=== PATIENT | male | born 1945 | race Caucasian/White ===

== ENCOUNTER 2019-02-28 08:54 | Emergency (ER) | payer OTHER ==
--- NOTE | 2019-02-28 09:47 | ER ---
Nurse's Notes [facility] Name: Liam Jenkins Age: 73 yrs Sex: Male : 1945 Arrival Date: 02/28/2019 Time: 08:56 Bed 20 Private MD: Toñito Sifuentes V Diagnosis: Pain in right hand-swelling, edema Presentation: 02/28 09:03 Presenting complaint: Patient states: RIGHT HAND SWELLING SINCE FRIDAY. Transition of bp care: patient was not received from another setting of care. Onset of symptoms is unknown. Risk Assessment: Do you want to hurt yourself or someone else? Patient reports no desire to harm self or others. Initial Sepsis Screen: Does the patient meet any 2 criteria? No. Patient's initial sepsis screen is negative. Does the patient have a suspected source of infection? No. Patient's initial sepsis screen is negative. Care prior to arrival: None. 09:03 Method Of Arrival: Ambulatory bp 09:03 Acuity: MALLORY 4 bp Triage Assessment: 09:05 General: Appears in no apparent distress. comfortable, obese, Behavior is calm, bp cooperative, appropriate for age. Pain: Complains of pain in right hand. EENT: No deficits noted. Neuro: No deficits noted. Cardiovascular: No deficits noted. Respiratory: No deficits noted. GI: No signs and/or symptoms were reported involving the gastrointestinal system. : No signs and/or symptoms were reported regarding the genitourinary system. Derm: No deficits noted. Musculoskeletal: Swelling present in right hand. Historical: - Allergies: 09:06 No Known Allergies; bp - Home Meds: 09:06 testosterone cypionate intramuscular intramuscular [Active]; LAVITRA [Active]; bp - PMHx: 09:06 None; bp - PSHx: 09:06 PROSTATE; bp - Immunization history:: Adult Immunizations up to date. - Social history:: Smoking status: Patient/guardian denies using tobacco. - Ebola Screening: : No symptoms or risks identified at this time. - Family history:: not pertinent. Screenin:37 Abuse screen: Denies threats or abuse. Denies injuries from another. Nutritional jl7 screening: No deficits noted. Tuberculosis screening: No symptoms or risk factors identified. Fall Risk None identified. Assessment: 09:05 General: SEE TRIAGE NOTE. bp 10:11 Reassessment: PT D/C HOME AMBULATORY WITH FAMILY, DX WITH R HAND PAIN/SWELLING. bp Vital Signs: 09:06 BP 147 / 104; Pulse 84; Resp 16; Temp 98; Pulse Ox 96% ; Weight 97.52 kg; Height 5 ft. bp 8 in. (172.72 cm); 10:12 BP 131 / 89; Pulse 82; Resp 16; Temp 98; Pulse Ox 96% ; bp 09:06 Body Mass Index 32.69 (97.52 kg, 172.72 cm) bp ED Course: 08:56 Patient arrived in ED. mr 08:56 Toñito Sifuentes MD is Private Physician. mr 08:56 Ken Myers MD is Attending Physician. joslyn 09:03 Rashawn Mejia, RN is Primary Nurse. bp 09:04 Triage completed. bp 09:06 Arm band placed on. bp 09:37 Patient has correct armband on for positive identification. Bed in low position. Call jl7 light in reach. Side rails up X 1. 09:41 Toñito Sifuentes MD is Referral Physician. joslyn 10:00 No provider procedures requiring assistance completed. Patient did not have IV access bp during this emergency room visit. Velcro wrist splint applied to right wrist. Administered Medications: 09:45 Drug: predniSONE 40 mg Route: PO; bp 10:14 Follow up: Response: No adverse reaction bp 09:45 Drug: Motrin 600 mg Route: PO; bp 10:14 Follow up: Response: No adverse reaction bp 09:45 Drug: Pepcid 20 mg Route: PO; bp 10:14 Follow up: Response: No adverse reaction bp 09:45 Drug: Benadryl 25 mg Route: PO; bp 10:14 Follow up: Response: No adverse reaction bp Outcome: 09:46 Discharge ordered by . joslyn 10:12 Discharged to home ambulatory, with family. bp 10:12 Condition: stable 10:12 Discharge instructions given to patient, Instructed on discharge instructions, follow up and referral plans. medication usage, Demonstrated understanding of instructions, follow-up care, medications, Prescriptions given X 4. 10:15 Patient left the ED. bp Signatures: Ken Myers MD MD cha Rivera, Mary LuoViktoriya, RN RN jl7 Rashawn Mejia, ELLYN RN bp
--- NOTE | 2019-02-28 09:48 | EDPHYS ---
Physician Documentation [facility] Name: Liam Jenkins Age: 73 yrs Sex: Male : 1945 Arrival Date: 02/28/2019 Time: 08:56 Bed 20 Private MD: Toñito Sifuentes V ED Physician Ken Myers HPI: 02/28 09:38 This 73 yrs old Male presents to ER via Ambulatory with complaints of Hand joslyn Swelling. 09:38 The patient or guardian reports decreased range of motion, pain, swelling, tenderness. joslyn The complaints affect the right hand diffusely. Context: The problem was sustained at an unknown location, resulted from an unknown cause. Onset: The symptoms/episode began/occurred 3 day(s) ago. Modifying factors: The symptoms are alleviated by nothing, the symptoms are aggravated by nothing. Associated signs and symptoms: The patient has no apparent associated signs or symptoms. Severity of symptoms: At their worst the symptoms were mild, in the emergency department the symptoms are unchanged. The patient has not experienced similar symptoms in the past. Historical: - Allergies: 09:06 No Known Allergies; bp - Home Meds: 09:06 testosterone cypionate intramuscular intramuscular [Active]; LAVITRA [Active]; bp - PMHx: 09:06 None; bp - PSHx: 09:06 PROSTATE; bp - Immunization history:: Adult Immunizations up to date. - Social history:: Smoking status: Patient/guardian denies using tobacco. - Ebola Screening: : No symptoms or risks identified at this time. - Family history:: not pertinent. ROS: 09:38 Constitutional: Negative for fever, chills, and weight loss, Eyes: Negative for injury, joslyn pain, redness, and discharge, ENT: Negative for injury, pain, and discharge, Neck: Negative for injury, pain, and swelling, Cardiovascular: Negative for chest pain, palpitations, and edema, Respiratory: Negative for shortness of breath, cough, wheezing, and pleuritic chest pain, Abdomen/GI: Negative for abdominal pain, nausea, vomiting, diarrhea, and constipation, Back: Negative for injury and pain, : Negative for injury, bleeding, discharge, and swelling, Skin: Negative for injury, rash, and discoloration, Neuro: Negative for headache, weakness, numbness, tingling, and seizure, Psych: Negative for depression, anxiety, suicide ideation, homicidal ideation, and hallucinations, Allergy/Immunology: Negative for hives, rash, and allergies, Endocrine: Negative for neck swelling, polydipsia, polyuria, polyphagia, and marked weight changes, Hematologic/Lymphatic: Negative for swollen nodes, abnormal bleeding, and unusual bruising. 09:38 MS/extremity: Positive for decreased range of motion, pain, swelling, tenderness, of the right hand. Exam: 09:38 Constitutional: This is a well developed, well nourished patient who is awake, alert, joslyn and in no acute distress. Head/Face: Normocephalic, atraumatic. Eyes: Pupils equal round and reactive to light, extra-ocular motions intact. Lids and lashes normal. Conjunctiva and sclera are non-icteric and not injected. Cornea within normal limits. Periorbital areas with no swelling, redness, or edema. ENT: Nares patent. No nasal discharge, no septal abnormalities noted. Tympanic membranes are normal and external auditory canals are clear. Oropharynx with no redness, swelling, or masses, exudates, or evidence of obstruction, uvula midline. Mucous membranes moist. Neck: Trachea midline, no thyromegaly or masses palpated, and no cervical lymphadenopathy. Supple, full range of motion without nuchal rigidity, or vertebral point tenderness. No Meningismus. Chest/axilla: Normal chest wall appearance and motion. Nontender with no deformity. No lesions are appreciated. Cardiovascular: Regular rate and rhythm with a normal S1 and S2. No gallops, murmurs, or rubs. Normal PMI, no JVD. No pulse deficits. Respiratory: Lungs have equal breath sounds bilaterally, clear to auscultation and percussion. No rales, rhonchi or wheezes noted. No increased work of breathing, no retractions or nasal flaring. Abdomen/GI: Soft, non-tender, with normal bowel sounds. No distension or tympany. No guarding or rebound. No evidence of tenderness throughout. Back: No spinal tenderness. No costovertebral tenderness. Full range of motion. Skin: Warm, dry with normal turgor. Normal color with no rashes, no lesions, and no evidence of cellulitis. Neuro: Awake and alert, GCS 15, oriented to person, place, time, and situation. Cranial nerves II-XII grossly intact. Motor strength 5/5 in all extremities. Sensory grossly intact. Cerebellar exam normal. Normal gait. Psych: Awake, alert, with orientation to person, place and time. Behavior, mood, and affect are within normal limits. 09:38 Musculoskeletal/extremity: Extremities: decreased ROM, pain, ROM: limited active range of motion due to pain, limited passive range of motion due to pain, in the right hand, DVT Exam: negative Homans' sign noted on exam, no appreciated bluish discoloration, pain, swelling, tenderness, erythema, increased warmth, that is moderate, of the right hand. Vital Signs: 09:06 BP 147 / 104; Pulse 84; Resp 16; Temp 98; Pulse Ox 96% ; Weight 97.52 kg; Height 5 ft. bp 8 in. (172.72 cm); 10:12 BP 131 / 89; Pulse 82; Resp 16; Temp 98; Pulse Ox 96% ; bp 09:06 Body Mass Index 32.69 (97.52 kg, 172.72 cm) bp MDM: 08:56 Patient medically screened. [facility] 09:47 Data reviewed: vital signs, nurses notes. [facility] 02/28 09:38 Order name: Ice pack; Complete Time: 10:13 [facility] 02/28 09:38 Order name: Splint - Wrist; Complete Time: 10:13 [facility] Administered Medications: 09:45 Drug: predniSONE 40 mg Route: PO; bp 10:14 Follow up: Response: No adverse reaction bp 09:45 Drug: Motrin 600 mg Route: PO; bp 10:14 Follow up: Response: No adverse reaction bp 09:45 Drug: Pepcid 20 mg Route: PO; bp 10:14 Follow up: Response: No adverse reaction bp 09:45 Drug: Benadryl 25 mg Route: PO; bp 10:14 Follow up: Response: No adverse reaction bp Disposition: 02/28/19 09:46 Discharged to Home. Impression: Pain in right hand - swelling, edema. - Condition is Stable. - Discharge Instructions: Edema, Angioedema, Edema, [id number], Hand Pain. - Prescriptions for Pepcid 20 mg Oral Tablet - take 1 tablet by ORAL route every 12 hours for 10 days; 20 tablet. Claritin 10 mg Oral Tablet - take 1 tablet by ORAL route once daily As needed; 14 tablet. Diclofenac Sodium 75 mg Oral Tablet, Delayed Release (E.C.) - take 1 tablet by ORAL route 2 times per day; 20 tablet. Medrol (Clarence) 4 mg Oral Tablets, Dose Pack - take 1 tablet by ORAL route as directed - follow package instructions; 1 packet. Augmentin 875- 125 mg Oral Tablet - take 1 tablet by ORAL route every 12 hours for 10 days; 20 tablet. - Medication Reconciliation Form, Thank You Letter, Antibiotic Education, Prescription Opioid Use form. - Follow up: Toñito Sifuentes MD; When: 2 - 3 days; Reason: Recheck today's complaints, Continuance of care, Re-evaluation by your physician. - Problem is new. - Symptoms have improved. Signatures: Ken Myers MD MD cha Peltier, Brian, RN RN bp Corrections: (The following items were deleted from the chart) 10:15 09:46 02/28/2019 09:46 Discharged to Home. Impression: Pain in right hand - swelling, bp edema. Condition is Stable. Forms are Medication Reconciliation Form, Thank You Letter, Antibiotic Education, Prescription Opioid Use. Follow up: Toñito Sifuentes; When: 2 - 3 days; Reason: Recheck today's complaints, Continuance of care, Re-evaluation by your physician. Problem is new. Symptoms have improved. joslyn
[2019-02-28] MEDS ORDERED: DIPHENHYDRAMINE 25 MG TAB/CAP ONE (10:00)
[2019-02-28] MEDS ORDERED: IBUPROFEN 200 MG TAB PO ONE (10:00)
[2019-02-28] MEDS ORDERED: predniSONE 20 MG TAB ONE (10:00)
[2019-02-28] MEDS ORDERED: FAMOTIDINE 20 MG TAB ONE (10:01)
[2019-02-28 10:20] VITALS: TEMP 98; O2SAT 96
[2019-02-28 10:21] VITALS: BP 131/89
== END 2019-02-28 10:15 | disposition home or self-care (01) ==
LOC: ER 08:54
DX: R60.9 Edema, unspecified (principal)
CPT/HCPCS: 99283; J7512

== ENCOUNTER 2022-03-27 11:55 | Inpatient (IN) | payer OTHER ==
--- OUTSIDE RECORDS SUMMARY | 2022-03-27 11:59 | XMS REPORT | Continuity of Care Document ---
:1945 Author Organization [facility] t Address [address] [place] [address] [address]. [address] [place] [address] Care Team Providers Name Role Phone Toñito Sifuentes MD Primary Care Physician PAWAN BRUNO Attending Clinician Unavailable Rashawn Mahan MD Attending Clinician Talon Nuno MD Attending Clinician MD TALON NUNO Attending Clinician Unavailable TALON NUNO Admitting Clinician Unavailable MD TALON NUNO Admitting Clinician Unavailable Payers Payer Name Policy Type Policy Number Effective Date Expiration Date S ource Problems Condition Condition Condition Status Onset Resolution Last Treating Co mments Source Name Details Category Date Date Treatment Clinician Date History of History of Disease Active M ethodi prostate prostate 3-14 st cancer cancer 00:00: Hospita 00 l Allergies, Adverse Reactions, Alerts This patient has no known allergies or adverse reactions. Family History Family Member Diagnosis Comments Start Date Stop Date Source [facility] Social History Social Habit Start Date Stop Date Quantity Comments Source Alcohol intake 2020-06-29 2020-06-29 Current drinker of [facility] 00:00:00 00:00:00 alcohol (finding) Hospita l Alcohol Comment 2020-05-19 2020-05-19 occasional [facility] 00[facility] Tobacco use and 2018-03-06 2018-03-06 Smokeless tobacco [facility] exposure 00:00:00 00:00:00 non-user Hospital Sex Assigned At [birth year] [facility] 00:[facility]00 [facility] Smoking Status Start Date Stop Date Source Never smoked tobacco [facility] Medications Ordered Filled Start Stop Current Ordering Indication Dosage Frequency Signature Comments Components Source Medication Medication Date Date Medication? Clinician (SIG) Name Name acetaminoph Yes 500mg Q6H Take 500 M ethodi en 5-[address] (TYLENOL) 10:12: mouth Hospita 500 MG 44 every 6 l tablet (six) hours as needed for mild pain. calcium Yes 1{tbl} Q.5D Take 1 Method i carbonate-v 5-[address] itamin D3 10:12: mouth 2 Hospi ta 500 mg-200 44 (two) l unit per times a tablet day with meals. celecoxib Yes 100mg QD Take 100 Met hodi (CeleBREX) 5-[address] 100 MG 10:12: mouth Hospita capsule 44 daily. l loratadine Yes 10mg QD Take 10 mg M ethodi (CLARITIN) 5-[address] 10 mg 10:12: daily. Hospita tablet 44 l pseudoepHED Yes 30mg Q4H Take 30 mg Methodi rine 5-[address] (SUDAFED) 10:12: every 4 Hospi ta 30 MG 44 (four) l tablet hours as needed for congestion . testosteron Yes QD Place on Me thodi e 5-[address] (ANDROGEL) 10:12: daily. Hospi ta 1 % (25 44 l mg/2.5gram) gel in packet NUTRITIONAL Yes Take by Met hodi SUPPLEMENTS 5-[address] ORAL 10:12: A, B, C, D Hospita 44 l acetaminoph Yes 500mg Q6H Take 500 M ethodi en 5-[address] (TYLENOL) 10:12: mouth Hospita 500 MG 44 every 6 l tablet (six) hours as needed for mild pain. calcium Yes 1{tbl} Q.5D Take 1 Method i carbonate-v 5-[address] itamin D3 10:12: mouth 2 Hospi ta 500 mg-200 44 (two) l unit per times a tablet day with meals. celecoxib 2020-0 Yes 100mg QD Take 100 Met hodi (CeleBREX) 5-[address] 100 MG 10:12: mouth Hospita capsule 44 daily. l loratadine 0 Yes 10mg QD Take 10 mg M ethodi (CLARITIN) 5-[address] 10 mg 10:12: daily. Hospita tablet 44 l pseudoepHED 0 Yes 30mg Q4H Take 30 mg Methodi rine 5-[address] (SUDAFED) 10:12: every 4 Hospi ta 30 MG 44 (four) l tablet hours as needed for congestion . testosteron Yes QD Place on Me thodi e 06-[address] (ANDROGEL) 10:12: daily. Hospi ta 1 % (25 44 l mg/2.5gram) gel in packet NUTRITIONAL Yes Take by Met hodi SUPPLEMENTS -[address] ORAL 10:12: A, B, C, D Hospita 44 l acetaminoph 0 Yes 500mg Q6H Take 500 M ethodi en 5-[address] (TYLENOL) 10:12: mouth Hospita 500 MG 44 every 6 l tablet (six) hours as needed for mild pain. calcium Yes 1{tbl} Q.5D Take 1 Method i carbonate-v 5-[address] itamin D3 10:12: mouth 2 Hospi ta 500 mg-200 44 (two) l unit per times a tablet day with meals. celecoxib 0 Yes 100mg QD Take 100 Met hodi (CeleBREX) 5-[address] 100 MG 10:12: mouth Hospita capsule 44 daily. l loratadine 0 Yes 10mg QD Take 10 mg M ethodi (CLARITIN) 5-[address] 10 mg 10:12: daily. Hospita tablet 44 l pseudoepHED 0 Yes 30mg Q4H Take 30 mg Methodi rine 5-[address] (SUDAFED) 10:12: every 4 Hospi ta 30 MG 44 (four) l tablet hours as needed for congestion . testosteron [address] on Me thodi e 5-[address] (ANDROGEL) 10:12: daily. Hospi ta 1 % (25 44 l mg/2.5gram) gel in packet NUTRITIONAL Yes Take by Met hodi SUPPLEMENTS 5-[address] ORAL 10:12: A, B, C, D Hospita 44 l acetaminoph 0 Yes 500mg Q6H Take 500 M ethodi en 5-[address] (TYLENOL) 10:12: mouth Hospita 500 MG 44 every 6 l tablet (six) hours as needed for mild pain. calcium Yes 1{tbl} Q.5D Take 1 Method i carbonate-v 5-[address] itamin D3 10:12: mouth 2 Hospi ta 500 mg-200 44 (two) l unit per times a tablet day with meals. celecoxib Yes 100mg QD Take 100 Met hodi (CeleBREX) 5-[address] 100 MG 10:12: mouth Hospita capsule 44 daily. l loratadine Yes 10mg QD Take 10 mg M ethodi (CLARITIN) 5-[address] 10 mg 10:12: daily. Hospita tablet 44 l pseudoepHED Yes 30mg Q4H Take 30 mg Methodi rine 5-[address] (SUDAFED) 10:12: every 4 Hospi ta 30 MG 44 (four) l tablet hours as needed for congestion . testosteron Yes QD Place on Me thodi e 5-[address] (ANDROGEL) 10:12: daily. Hospi ta 1 % (25 44 l mg/2.5gram) gel in packet NUTRITIONAL Yes Take by Met hodi SUPPLEMENTS 5-[address] ORAL 10:12: A, B, C, D Hospita 44 l acetaminoph 202-0 Yes 500mg Q6H Take 500 M ethodi en 5-[address] (TYLENOL) 10:12: mouth Hospita 500 MG 44 every 6 l tablet (six) hours as needed for mild pain. calcium 0 Yes 1{tbl} Q.5D Take 1 Method i carbonate-v 5-[address] itamin D3 10:12: mouth 2 Hospi ta 500 mg-200 44 (two) l unit per times a tablet day with meals. celecoxib Yes 100mg QD Take 100 Met hodi (CeleBREX) 5-[address] 100 MG 10:12: mouth Hospita capsule 44 daily. l loratadine Yes 10mg QD Take 10 mg M ethodi (CLARITIN) [address] 10 mg 10:12: daily. Hospita tablet 44 l pseudoepHED Yes 30mg Q4H Take 30 mg Methodi rine [address] (SUDAFED) 10:12: every 4 Hospi ta 30 MG 44 (four) l tablet hours as needed for congestion . testosteron Yes QD Place on Me thodi e 06-[address] (ANDROGEL) 10:12: daily. Hospi ta 1 % (25 44 l mg/2.5gram) gel in packet NUTRITIONAL Yes Take by Met hodi SUPPLEMENTS -[address] ORAL 10:12: A, B, C, D Hospita 44 l vardenafiL Yes [id number] 20mg Take 1 Methodi (LEVITRA) 1-11 tablet (20 st 20 MG 00:00: mg total) Hospita tablet 00 by mouth l See Admin Instructio ns. vardenafiL Yes [id number] 20mg Take 1 Methodi (LEVITRA) 1-11 tablet (20 st 20 MG 00:00: mg total) Hospita tablet 00 by mouth l See Admin Instructio ns. vardenafiL Yes [id number] 20mg Take 1 Methodi (LEVITRA) 1-11 tablet (20 st 20 MG 00:00: mg total) Hospita tablet 00 by mouth l See Admin Instructio ns. vardenafiL Yes [id number] 20mg Take 1 Methodi (LEVITRA) 1-11 tablet (20 st 20 MG 00:00: mg total) Hospita tablet 00 by mouth l See Admin Instructio ns. vardenafiL Yes [id number] 20mg Take 1 Methodi (LEVITRA) 1-11 tablet (20 st 20 MG 00:00: mg total) Hospita tablet 00 by mouth l See Admin Instructio ns. Immunizations Ordered Immunization Filled Immunization Date Status Commen ts Source Name Name HERMILO GRACEEamon 2020-04-04 Completed [facility] t [facility] 00:00:00 [facility] 2020-04-04 Completed Methodis t MRNA VACCINATION 00:00:00 [facility]AL[facility] 2020-04-04 Completed Methodis t MRNA VACCINATION 00:00:00 [facility] 2020-04-04 Completed Methodis t MRNA VACCINATION 00:00:00 [facility] 2020-03-13 Completed Methodis t MRNA VACCINATION 00:00:00 [facility] 2020-03-13 Completed [facility] t [facility] Completed Methodis t [place] [place]ACCINATION 00:00:00 [place] [id number] 2020-03-13 Completed Methodis t MRNA VACCINATION 00:00:00 [place] [id number] 2020-03-13 Completed Methodis t MRNA VACCINATION 00:00:00 Hospital Procedures Procedure Date / Time Performing Clinician Source Performed TESTOSTERONE LEVEL, FREE 2021-04-04 16:56:00 Talon Nuno [facility] AND TOTAL, MALE CBC WITH PLATELET AND 2021-04-04 16:56:00 Talon Nuno [facility] DIFFERENTIAL ESTRADIOL LEVEL 2021-04-04 16:56:00 Talon [facility]unoist Ho spital PSA, ULTRASENSITIVE 2021-04-04 16:56:00 [facility] Plan of Care Planned Activity Planned Date Details Comments Source Future Scheduled 2022-03-10 Hepatitis C screening [facility] Test 14:15:40 (procedure) [code = 738315697] Future Scheduled 2022-03-10 COLONOSCOPY SCREENING [facility] Test 14:15:40 [code = COLONOSCOPY SCREENING] Future Scheduled 2022-03-10 SHINGLES VACCINES (1 Met [facility] Test 14:15:40 of 2) [code = SHINGLES VACCINES (1 of 2)] Future Scheduled 2022-03-10 65+ PNEUMOCOCCAL [facility] Test 14:15:40 VACCINE (1 - PCV) [code = 65+ PNEUMOCOCCAL VACCINE (1 - PCV)] Future Scheduled 2022-03-10 COVID-19 VACCINE (3 - [facility] Test 14:15:40 Booster) [code = COVID-19 VACCINE (3 - Booster)] Future Scheduled 2022-03-10 INFLUENZA VACCINE [facility] Test 14:15:40 [code = INFLUENZA VACCINE] Future Scheduled 2022-03-10 Hepatitis C screening Me [facility] Test 14:15:40 (procedure) [code = 933483626] Future Scheduled 2022-03-10 COLONOSCOPY SCREENING [facility] Test 14:15:40 [code = COLONOSCOPY SCREENING] Future Scheduled 2022-03-10 SHINGLES VACCINES (1 Met [facility] Test 14:15:40 of 2) [code = SHINGLES VACCINES (1 of 2)] Future Scheduled 2022-03-10 65+ PNEUMOCOCCAL Methodi [facility] Test 14:15:40 VACCINE (1 - PCV) [code = 65+ PNEUMOCOCCAL VACCINE (1 - PCV)] Future Scheduled 2022-03-10 COVID-19 VACCINE (3 - [facility] Test 14:15:40 Booster) [code = COVID-19 VACCINE (3 - Booster)] Future Scheduled 2022-03-10 INFLUENZA VACCINE Method [facility] Test 14:15:40 [code = INFLUENZA VACCINE] Future Scheduled 2022-03-10 Hepatitis C screening [facility] Test 14:15:40 (procedure) [code = [id number]] Future Scheduled 2022-03-10 COLONOSCOPY SCREENING [facility] Test 14:15:40 [code = COLONOSCOPY SCREENING] Future Scheduled 2022-03-10 SHINGLES VACCINES (1 Met [facility] Test 14:15:40 of 2) [code = SHINGLES VACCINES (1 of 2)] Future Scheduled 2022-03-10 65+ PNEUMOCOCCAL [facility] Hospital Test 14:15:40 VACCINE (1 - PCV) [code = 65+ PNEUMOCOCCAL VACCINE (1 - PCV)] Future Scheduled 2022-03-10 COVID-19 VACCINE (3 - [facility] Test 14:15:40 Booster) [code = COVID-19 VACCINE (3 - Booster)] Future Scheduled 2022-03-10 INFLUENZA VACCINE Method [facility] Test 14:15:40 [code = INFLUENZA VACCINE] Future Scheduled 2022-02-08 Hepatitis C screening Me [facility] Test 07:10:06 (procedure) [code = [id number]] Future Scheduled 2022-02-08 COLONOSCOPY SCREENING Me [facility] Test 07:10:06 [code = COLONOSCOPY SCREENING] Future Scheduled 2022-02-08 SHINGLES VACCINES (1 Met [facility] Test 07:10:06 of 2) [code = SHINGLES VACCINES (1 of 2)] Future Scheduled 2022-02-08 65+ PNEUMOCOCCAL Methodi [facility] Test 07:10:06 VACCINE (1 - PCV) [code = 65+ PNEUMOCOCCAL VACCINE (1 - PCV)] Future Scheduled 2022-02-08 COVID-19 VACCINE (3 - [facility] Test 07:10:06 Booster) [code = COVID-19 VACCINE (3 - Booster)] Future Scheduled 2022-02-08 INFLUENZA VACCINE [facility] Test 07:10:06 [code = INFLUENZA VACCINE] Future Scheduled 2022-02-08 Hepatitis C screening [facility] Test 07:10:06 (procedure) [code = 312846975] Future Scheduled 2022-02-08 COLONOSCOPY SCREENING [facility] Test 07:10:06 [code = COLONOSCOPY SCREENING] Future Scheduled 2022-02-08 SHINGLES VACCINES (1 Met [facility] Test 07:10:06 of 2) [code = SHINGLES VACCINES (1 of 2)] Future Scheduled 2022-02-08 65+ PNEUMOCOCCAL Methodi [facility] Test 07:10:06 VACCINE (1 - PCV) [code = 65+ PNEUMOCOCCAL VACCINE (1 - PCV)] Future Scheduled 2022-02-08 COVID-19 VACCINE (3 - [facility] Test 07:10:06 Booster) [code = COVID-19 VACCINE (3 - Booster)] Future Scheduled 2022-02-08 INFLUENZA VACCINE [facility] Test 07:10:06 [code = INFLUENZA VACCINE] Encounters Start End Encounter Admission Attending Care Care Encounter Source Date/Time Date/Time Type Type Clinicians Facility Department ID 2021-06-11 2021-06-11 Emergency E PAWAN BRUNO [facility]SE [id number] 12:18:00 14:47:00 [facility] 2021-04-04 2021-04-04 Office Rashawn Mahan 1.2.840.1 [id number] Methodi 10:30:00 11:38:38 Visit Talon Nuno [address]8440.1.[address] 3.430.2.7 Hospit a .3.823448 l .8 2021-04-04 2021-04-04 Office Negrito Rashawn Maru. 1.2.840.1 [id number] Methodi 10:30:00 11:38:38 Visit Talon Nuno 85015.1.[address] 3.430.2.7 Hospit a .3.446252 l .8 2021-04-04 2021-04-04 Travel 1.2.840.1 1.2.996.329 [id number] Methodi 00:00:00 00:00:[address] 3.430.2.7 0.2.7.3.698 Ho spita .3.971661 084.8 l .8 2021-04-04 2021-04-04 Travel 1.2.840.1 1.2.867.805 [id number] Methodi 00:00:00 00:00:[address] 3.430.2.7 0.2.7.3.698 Ho spita .3.383759 084.8 l .8 2020-09-25 2020-09-25 Outpatient ALO, [facility] [id number] [place] 00:00:00 00:00:00 TALON [address] 2020-06-29 2020-06-29 Outpatient ALO [facility] [id number] [place] 00:00:00 00:00:00 TALON [address] 2020-06-21 2020-06-21 Outpatient ALO [facility] [id number] [place] 00:00:00 00:00:00 TALON [address] 2020-05-29 2020-05-29 Outpatient [facility] [id number] [place] 00:00:00 00:00:[address] 2020-05-25 2020-05-25 Outpatient ALO, [facility] [id number] [place] 00:00:00 00:00:00 TALON [address] 2020-05-22 2020-05-22 Outpatient ALO [facility] [id number] [place] 00:00:00 00:00:00 TALON [address] 2020-03-06 2020-03-06 Outpatient ALO [facility] [id number] [place] 00:00:00 00:00:00 TALON [address] Results Test Description Test Time Test Comments Results Result Comments Source Testosterone level, free and total, male 2021-04-07 02:07:00 Test Item Value Reference Range Interpretation Comme nts Testosterone (test code 729 ng/dL 264-916 Adul t male reference interval = 2986-8) is based on a p opulation ofhealthy nonob carl males (BMI <30) between 19 and 39 years old.facundo Tee.al. JCEM 2017,102;1161-1 173. PMID: 52919659. Testosterone, free 8.5 pg/mL 6.6-18.1 (test code = 2991-8) LINNEA (test code = LINNEA) Performed at: 01 - [address] [id number] Director: Wilian Park MD, Phone: [phone] at: 02 - [facility] [id number] Director: Jocelyn Marquez MD, Phone: [phone] [facility], free and total, [id number] 02:07:00 Test Item Value Reference Range Interpretation Comments Testosterone (test 729 ng/dL 264-916 Adult mal e code = 2986-8) reference interval is bas ed on a population ofhealthy nonobese males (BMI <30) betwe en 19 and 39 years old.darlin Tee.al. JCEM 2017,102;1161-1 17 3. PMID: 96435646. Testosterone, free 8.5 pg/mL 6.6-18.1 (test code = 2991-8) LINNEA (test code = Performed at: 01 LINNEA) - [facility] [id number] Director: Wilian Park MD, Phone: [phone] ed at: [address] [place] [address] [id number] Director: Jocelyn Marquez MD, Phone: [phone] [facility], free and total, [id number] 02:07:00 Test Item Value Reference Range Interpretation Comments Testosterone (test 729 ng/dL 264-916 Adult mal e code = 2986-8) reference interval is bas ed on a population ofhealthy nonobese males (BMI <30) betwe en 19 and 39 years old.Travison, et.al. JCEM 2017,102;1161-1 17 3. PMID: 17009302. Testosterone, free 8.5 pg/mL 6.6-18.1 (test code = 2991-8) LINNEA (test code = Performed at: 01 LINNEA) - [address] [id number] Director: Wilian Park MD, Phone: [phone] ed at: [address] [id number] Director: Jocelyn Marquez MD, Phone: [phone] [facility], free and total, [id number] 02:07:00 Test Item Value Reference Range Interpretation Comments Testosterone (test 729 ng/dL 264-916 Adult mal e code = 2986-8) reference interval is bas ed on a population ofhealthy nonobese males (BMI <30) betwe en 19 and 39 years old.Travison, et.al. JCEM 2017,102;1161-1 17 3. PMID: 72533001. Testosterone, free 8.5 pg/mL 6.6-18.1 (test code = 2991-8) LINNEA (test code = Performed at: 01 LINNEA) - [address] [id number] Director: Wilian Park MD, Phone: [phone] ed at: [address] [place] [address] [id number] Director: Jocelyn Marquez MD, Phone: [phone] [facility], free and total, [id number] 02:07:00 Test Item Value Reference Range Interpretation Comments Testosterone (test 729 ng/dL 264-916 Adult mal e code = 2986-8) reference interval is bas ed on a population ofhealthy nonobese males (BMI <30) betwe en 19 and 39 years old.Randal, et.al. JCEM 2017,102;1161-1 17 3. PMID: 15776929. Testosterone, free 8.5 pg/mL 6.6-18.1 (test code = 2991-8) LINNEA (test code = Performed at: 01 LINNEA) - [facility] [address] [id number] Director: Wilian Park MD, Phone: [phone] ed at: 02 - [facility] [address] [id number] Director: Jocelyn Marquez MD, Phone: [phone] [facility] with platelet and [id number] 13:07:00 Test Item Value Reference Range Interpretation Comments WBC (test code = 5.2 See_Comment [Automated 1190-2) message] The system which generated this result transmit jackie reference range : 3.4 - 10.8 x10E3/uL. The reference range was not used to interpret this result as normal/abnormal . RBC (test code = 4.80 See_Comment [Automated 190-8) message] The system which generated this result transmit jackie reference range : 4.14 - 5.80 x10E6/uL. The reference range was not used to interpret this result as normal/abnormal . HGB (test code = 15.8 g/dL 13.0-17.7 718-7) HCT (test code = 44.5 % 37.5-51.0 4544-3) MCV (test code = 93 fL 79-97 787-2) MCH (test code = 32.9 pg 26.6-33.0 785-6) MCHC (test code = 35.5 g/dL 31.5-35.7 786-4) RDW (test code = 12.7 % 11.6-15.4 788-0) Platelet count 177 See_Comment [Automated (test code = 777-3) message] The system which generated this result transmit jackie reference range : 150 - 450 x10E3/uL. The reference range was not used to interpret this result as normal/abnormal . Neutrophils (test 69 % Not Estab. code = 770-8) Lymphocytes (test 16 % Not Estab. code = 736-9) Monocytes (test 11 % Not Estab. code = 5905-5) Eosinophils (test 3 % Not Estab. code = 713-8) Basophils (test 1 % Not Estab. code = 706-2) Neutrophils, 3.6 See_Comment [Automated absolute (test code message] The = 751-8) system which generated this result transmit jackie reference range : 1.4 - 7.0 x10E3/uL. The reference range was not used to interpret this result as normal/abnormal . Lymphocytes, 0.8 See_Comment [Automated absolute (test code message] The = 731-0) system which generated this result transmit jackie reference range : 0.7 - 3.1 x10E3/uL. The reference range was not used to interpret this result as normal/abnormal . Monocytes, absolute 0.6 See_Comment [Automa jackie (test code = 742-7) message] The system which generated this result transmit jackie reference range : 0.1 - 0.9 x10E3/uL. The reference range was not used to interpret this result as normal/abnormal . Eosinophils, 0.1 See_Comment [Automated absolute (test code message] The = 711-2) system which generated this result transmit jackie reference range : 0.0 - 0.4 x10E3/uL. The reference range was not used to interpret this result as normal/abnormal . Basophils, absolute 0.0 See_Comment [Automa jackie (test code = 704-7) message] The system which generated this result transmit jackie reference range : 0.0 - 0.2 x10E3/uL. The reference range was not used to interpret this result as normal/abnormal . Immature 0 % Not Estab. granulocytes (test code = 20057-3) Immature 0.0 See_Comment [Automated granulocytes, message] The absolute (test code system w [facility] = 60445-3) generated this result transmit jackie reference range : 0.0 - 0.1 x10E3/uL. The reference range was not used to interpret this result as normal/abnormal . LINNEA (test code = Performed at: [facility]) - [address] [id number] Director: Wilian Park MD, Phone: [phone] [facility] [id number] 13:07:00 Test Item Value Reference Range Interpretation Comments Estradiol (test code 49.3 pg/mL 7.6-42.6 H Elsa E CLIA = 2243-4) methodology LINNEA (test code = LINNEA) Performed at: - [address] [id number] Director: Wilian Park MD, Phone: [phone] Lab Interpretation Abnormal (test code = 47295-3) [facility], [id number] 13:07:00 Test Item Value Reference Interpretation Comments Range PSA, 0.020 ng/mL 0.000-4.000 Elsa ECLIA ultrasensitive methodology.A ccording to (test code = the [place] Ur ological 18287-5) Association, Se rum PSA shoulddecrease and remain at undetectable levels after radicalprostate ctomy. The AUA defines bio chemical recurrence as a n initialPSA valu e 0.200 ng/mL or greate r followed by a subsequentconfi rmatory PSA value 0.200 ng/mL or greater.Values obtained with different assay methods or kits cannot be usedinterchange ably. Results cannot be interpreted as absolute evidenceof the presence or absence of m alignant disease. LINNEA (test code = Performed at: [facility]) [address] [place] [address] [id number] Director: Wilian Park MD, Phone: [phone] [facility] with platelet and [id number] 13:07:00 Test Item Value Reference Range Interpretation Comments WBC (test code = See_Comment [Automated 7628-2) message] The system which generated this result transmit jackie reference range : 3.4 - 10.8 x10E3/uL. The reference range was not used to interpret this result as normal/abnormal . RBC (test code = See_Comment [Automated 002-1) message] The system which generated this result transmit jackie reference range : 4.14 - 5.80 x10E6/uL. The reference range was not used to interpret this result as normal/abnormal . HGB (test code = 15.8 g/dL 13.0-17.7 718-7) HCT (test code = 44.5 % 37.5-51.0 4544-3) MCV (test code = 93 fL 79-97 787-2) MCH (test code = 32.9 pg 26.6-33.0 785-6) MCHC (test code = 35.5 g/dL 31.5-35.7 786-4) RDW (test code = 12.7 % 11.6-15.4 788-0) Platelet count See_Comment [Automated (test code = 777-3) message] The system which generated this result transmit jackie reference range : 150 - 450 x10E3/uL. The reference range was not used to interpret this result as normal/abnormal . Neutrophils (test 69 % Not Estab. code = 770-8) Lymphocytes (test 16 % Not Estab. code = 736-9) Monocytes (test 11 % Not Estab. code = 5905-5) Eosinophils (test 3 % Not Estab. code = 713-8) Basophils (test 1 % Not Estab. code = 706-2) Neutrophils, See_Comment [Automated absolute (test code message] The = 751-8) system which generated this result transmit jackie reference range : 1.4 - 7.0 x10E3/uL. The reference range was not used to interpret this result as normal/abnormal . Lymphocytes, See_Comment [Automated absolute (test code message] The = 731-0) system which generated this result transmit jackie reference range : 0.7 - 3.1 x10E3/uL. The reference range was not used to interpret this result as normal/abnormal . Monocytes, absolute See_Comment [Automa jackie (test code = 742-7) message] The system which generated this result transmit jackie reference range : 0.1 - 0.9 x10E3/uL. The reference range was not used to interpret this result as normal/abnormal . Eosinophils, See_Comment [Automated absolute (test code message] The = 711-2) system which generated this result transmit jackie reference range : 0.0 - 0.4 x10E3/uL. The reference range was not used to interpret this result as normal/abnormal . Basophils, absolute See_Comment [Automa jackie (test code = 704-7) message] The system which generated this result transmit jackie reference range : 0.0 - 0.2 x10E3/uL. The reference range was not used to interpret this result as normal/abnormal . Immature 0 % Not Estab. granulocytes (test code = 86592-1) Immature See_Comment [Automated granulocytes, message] The absolute (test code system w [facility] = 23908-6) generated this result transmit jackie reference range : 0.0 - 0.1 x10E3/uL. The reference range was not used to interpret this result as normal/abnormal . LINNEA (test code = Performed at: [facility]) - [address] [id number] Director: Wilian Park MD, Phone: [phone] [facility] [id number] 13:07:00 Test Item Value Reference Range Interpretation Comments Estradiol (test code 49.3 pg/mL 7.6-42.6 H Elsa E CLIA = 2243-4) methodology LINNEA (test code = LINNEA) Performed at: - [address] [id number] Director: Wilian Park MD, Phone: [phone] Lab Interpretation Abnormal (test code = 49634-5) [facility], [id number] 13:07:00 Test Item Value Reference Interpretation Comments Range PSA, 0.020 ng/mL 0.000-4.000 Elsa ECLIA ultrasensitive methodology.A ccording to (test code = the [place] Ur ological 04970-9) Association, Se rum PSA shoulddecrease and remain at undetectable levels after radicalprostate ctomy. The AUA defines bio chemical recurrence as a n initialPSA valu e 0.200 ng/mL or greate r followed by a subsequentconfi rmatory PSA value 0.200 ng/mL or greater.Values obtained with different assay methods or kits cannot be usedinterchange ably. Results cannot be interpreted as absolute evidenceof the presence or absence of m alignant disease. LINNEA (test code = Performed at: LINNEA) [address] [place] [id number] Director: Wilian Park MD, Phone: [phone] [facility] with platelet and [id number] 13:07:00 Test Item Value Reference Range Interpretation Comments WBC (test code = See_Comment [Automated 4990-2) message] The system which generated this result transmit jackie reference range : 3.4 - 10.8 x10E3/uL. The reference range was not used to interpret this result as normal/abnormal . RBC (test code = See_Comment [Automated 789-8) message] The system which generated this result transmit jackie reference range : 4.14 - 5.80 x10E6/uL. The reference range was not used to interpret this result as normal/abnormal . HGB (test code = 15.8 g/dL 13.0-17.7 718-7) HCT (test code = 44.5 % 37.5-51.0 4544-3) MCV (test code = 93 fL 79-97 787-2) MCH (test code = 32.9 pg 26.6-33.0 785-6) MCHC (test code = 35.5 g/dL 31.5-35.7 786-4) RDW (test code = 12.7 % 11.6-15.4 788-0) Platelet count See_Comment [Automated (test code = 777-3) message] The system which generated this result transmit jackie reference range : 150 - 450 x10E3/uL. The reference range was not used to interpret this result as normal/abnormal . Neutrophils (test 69 % Not Estab. code = 770-8) Lymphocytes (test 16 % Not Estab. code = 736-9) Monocytes (test 11 % Not Estab. code = 5905-5) Eosinophils (test 3 % Not Estab. code = 713-8) Basophils (test 1 % Not Estab. code = 706-2) Neutrophils, See_Comment [Automated absolute (test code message] The = 751-8) system which generated this result transmit jackie reference range : 1.4 - 7.0 x10E3/uL. The reference range was not used to interpret this result as normal/abnormal . Lymphocytes, See_Comment [Automated absolute (test code message] The = 731-0) system which generated this result transmit jackie reference range : 0.7 - 3.1 x10E3/uL. The reference range was not used to interpret this result as normal/abnormal . Monocytes, absolute See_Comment [Automa jackie (test code = 742-7) message] The system which generated this result transmit jackie reference range : 0.1 - 0.9 x10E3/uL. The reference range was not used to interpret this result as normal/abnormal . Eosinophils, See_Comment [Automated absolute (test code message] The = 711-2) system which generated this result transmit jackie reference range : 0.0 - 0.4 x10E3/uL. The reference range was not used to interpret this result as normal/abnormal . Basophils, absolute See_Comment [Automa jackie (test code = 704-7) message] The system which generated this result transmit jackie reference range : 0.0 - 0.2 x10E3/uL. The reference range was not used to interpret this result as normal/abnormal . Immature 0 % Not Estab. granulocytes (test code = 44654-0) Immature See_Comment [Automated granulocytes, message] The absolute (test code system w [facility] = 40430-7) generated this result transmit jackie reference range : 0.0 - 0.1 x10E3/uL. The reference range was not used to interpret this result as normal/abnormal . LINNEA (test code = Performed at: [facility]) - [address] [id number] Director: Wilian Park MD, Phone: [phone] [facility] [id number] 13:07:00 Test Item Value Reference Range Interpretation Comments Estradiol (test code 49.3 pg/mL 7.6-42.6 H Elsa E CLIA = 2243-4) methodology LINNEA (test code = LINNEA) Performed at: - [facility] [address] [id number] Director: Wilian Park MD, Phone: [phone] Lab Interpretation Abnormal (test code = 61951-4) [facility], [id number] 13:07:00 Test Item Value Reference Interpretation Comments Range PSA, 0.020 ng/mL 0.000-4.000 Elsa ECLIA ultrasensitive methodology.A ccording to (test code = the [place] Ur ological 47421-9) Association, Se rum PSA shoulddecrease and remain at undetectable levels after radicalprostate ctomy. The AUA defines bio chemical recurrence as a n initialPSA valu e 0.200 ng/mL or greate r followed by a subsequentconfi rmatory PSA value 0.200 ng/mL or greater.Values obtained with different assay methods or kits cannot be usedinterchange ably. Results cannot be interpreted as absolute evidenceof the presence or absence of m alignant disease. LINNEA (test code = Performed at: LINNEA) 01 - [facility] [address] [place], [place] [id number] Director: Wilian Park MD, Phone: [phone] [facility] with platelet and [id number] 13:07:00 Test Item Value Reference Range Interpretation Comments WBC (test code = See_Comment [Automated 9924-2) message] The system which generated this result transmit jackie reference range : 3.4 - 10.8 x10E3/uL. The reference range was not used to interpret this result as normal/abnormal . RBC (test code = See_Comment [Automated 687-8) message] The system which generated this result transmit jackie reference range : 4.14 - 5.80 x10E6/uL. The reference range was not used to interpret this result as normal/abnormal . HGB (test code = 15.8 g/dL 13.0-17.7 718-7) HCT (test code = 44.5 % 37.5-51.0 4544-3) MCV (test code = 93 fL 79-97 787-2) MCH (test code = 32.9 pg 26.6-33.0 785-6) MCHC (test code = 35.5 g/dL 31.5-35.7 786-4) RDW (test code = 12.7 % 11.6-15.4 788-0) Platelet count See_Comment [Automated (test code = 807-3) message] The system which generated this result transmit jackie reference range : 150 - 450 x10E3/uL. The reference range was not used to interpret this result as normal/abnormal . Neutrophils (test 69 % Not Estab. code = 770-8) Lymphocytes (test 16 % Not Estab. code = 736-9) Monocytes (test 11 % Not Estab. code = 5905-5) Eosinophils (test 3 % Not Estab. code = 713-8) Basophils (test 1 % Not Estab. code = 706-2) Neutrophils, See_Comment [Automated absolute (test code message] The = 751-8) system which generated this result transmit jackie reference range : 1.4 - 7.0 x10E3/uL. The reference range was not used to interpret this result as normal/abnormal . Lymphocytes, See_Comment [Automated absolute (test code message] The = 731-0) system which generated this result transmit jackie reference range : 0.7 - 3.1 x10E3/uL. The reference range was not used to interpret this result as normal/abnormal . Monocytes, absolute See_Comment [Automa jackie (test code = 742-7) message] The system which generated this result transmit jackie reference range : 0.1 - 0.9 x10E3/uL. The reference range was not used to interpret this result as normal/abnormal . Eosinophils, See_Comment [Automated absolute (test code message] The = 711-2) system which generated this result transmit jackie reference range : 0.0 - 0.4 x10E3/uL. The reference range was not used to interpret this result as normal/abnormal . Basophils, absolute See_Comment [Automa jackie (test code = 704-7) message] The system which generated this result transmit jackie reference range : 0.0 - 0.2 x10E3/uL. The reference range was not used to interpret this result as normal/abnormal . Immature 0 % Not Estab. granulocytes (test code = 66182-1) Immature See_Comment [Automated granulocytes, message] The absolute (test code system w [facility] = 54652-0) generated this result transmit jackie reference range : 0.0 - 0.1 x10E3/uL. The reference range was not used to interpret this result as normal/abnormal . LINNEA (test code = Performed at: LINNEA) - [facility] [address] [place] [id number] Director: Wilian Park MD, Phone: [phone] [facility]2022-02-10 13:07:00 Test Item Value Reference Range Interpretation Comments Estradiol (test code 49.3 pg/mL 7.6-42.6 H Elsa E CLIA = 2243-4) methodology LINNEA (test code = LINNEA) Performed at: - [facility] [address] [id number] Director: Wilian Park MD, Phone: [phone] Lab Interpretation Abnormal (test code = 85170-5) [facility], [id number] 13:07:00 Test Item Value Reference Interpretation Comments Range PSA, 0.020 ng/mL 0.000-4.000 Elsa ECLIA ultrasensitive methodology.A ccording to (test code = the [place] Ur ological 53292-3) Association, Se rum PSA shoulddecrease and remain at undetectable levels after radicalprostate ctomy. The AUA defines bio chemical recurrence as a n initialPSA valu e 0.200 ng/mL or greate r followed by a subsequentconfi rmatory PSA value 0.200 ng/mL or greater.Values obtained with different assay methods or kits cannot be usedinterchange ably. Results cannot be interpreted as absolute evidenceof the presence or absence of m alignant disease. LINNEA (test code = Performed at: LINNEA) [facility] [address] [id number] Director: Wilian Park MD, Phone: [phone] [facility] with platelet and [id number] 13:07:00 Test Item Value Reference Range Interpretation Comments WBC (test code = See_Comment [Automated 5890-2) message] The system which generated this result transmit jackie reference range : 3.4 - 10.8 x10E3/uL. The reference range was not used to interpret this result as normal/abnormal . RBC (test code = See_Comment [Automated 129-8) message] The system which generated this result transmit jackie reference range : 4.14 - 5.80 x10E6/uL. The reference range was not used to interpret this result as normal/abnormal . HGB (test code = 15.8 g/dL 13.0-17.7 718-7) HCT (test code = 44.5 % 37.5-51.0 4544-3) MCV (test code = 93 fL 79-97 787-2) MCH (test code = 32.9 pg 26.6-33.0 785-6) MCHC (test code = 35.5 g/dL 31.5-35.7 786-4) RDW (test code = 12.7 % 11.6-15.4 788-0) Platelet count See_Comment [Automated (test code = 777-3) message] The system which generated this result transmit jackie reference range : 150 - 450 x10E3/uL. The reference range was not used to interpret this result as normal/abnormal . Neutrophils (test 69 % Not Estab. code = 770-8) Lymphocytes (test 16 % Not Estab. code = 736-9) Monocytes (test 11 % Not Estab. code = 5905-5) Eosinophils (test 3 % Not Estab. code = 713-8) Basophils (test 1 % Not Estab. code = 706-2) Neutrophils, See_Comment [Automated absolute (test code message] The = 751-8) system which generated this result transmit jackie reference range : 1.4 - 7.0 x10E3/uL. The reference range was not used to interpret this result as normal/abnormal . Lymphocytes, See_Comment [Automated absolute (test code message] The = 731-0) system which generated this result transmit jackie reference range : 0.7 - 3.1 x10E3/uL. The reference range was not used to interpret this result as normal/abnormal . Monocytes, absolute See_Comment [Automa jackie (test code = 742-7) message] The system which generated this result transmit jackie reference range : 0.1 - 0.9 x10E3/uL. The reference range was not used to interpret this result as normal/abnormal . Eosinophils, See_Comment [Automated absolute (test code message] The = 711-2) system which generated this result transmit jackie reference range : 0.0 - 0.4 x10E3/uL. The reference range was not used to interpret this result as normal/abnormal . Basophils, absolute See_Comment [Automa jackie (test code = 704-7) message] The system which generated this result transmit jackie reference range : 0.0 - 0.2 x10E3/uL. The reference range was not used to interpret this result as normal/abnormal . Immature 0 % Not Estab. granulocytes (test code = 08314-4) Immature See_Comment [Automated granulocytes, message] The absolute ([facility] 30329-[facility]) generated this result transmit jackie reference range : 0.0 - 0.1 x10E3/uL. The reference range was not used to interpret this result as normal/abnormal . LINNEA (test code = Performed at: 01 [facility]) - [address] [id number] Director: Wilian Park MD, Phone: [phone] [facility] [id number] 13:07:00 Test Item Value Reference Range Interpretation Comments Estradiol (test code 49.3 pg/mL 7.6-42.6 H Elsa E CLIA = 2243-4) methodology LINNEA (test code = LINNEA) Performed at: - [address] [id number] Director: Wilian Park MD, Phone: [phone] Lab Interpretation Abnormal (test code = 57227-3) [facility], [id number] 13:07:00 Test Item Value Reference Interpretation Comments Range PSA, 0.020 ng/mL 0.000-4.000 Elsa ECLIA ultrasensitive methodology.A ccording to (test code = the [place] Ur ological 72763-2) Association, Se rum PSA shoulddecrease and remain at undetectable levels after radicalprostate ctomy. The AUA defines bio chemical recurrence as a n initialPSA valu e 0.200 ng/mL or greate r followed by a subsequentconfi rmatory PSA value 0.200 ng/mL or greater.Values obtained with different assay methods or kits cannot be usedinterchange ably. Results cannot be interpreted as absolute evidenceof the presence or absence of m alignant disease. LINNEA (test code = Performed at: [facility]) - [address] [id number] Director: Wilian Park MD, Phone: [phone] [facility] [Presence] in Respiratory specimen by CARMEN with probe [id number] 14:29:53 Test Item Value Reference Range Interpretation Comments SARS-CoV-2 (COVID-19) RNA Not detected Not-Detected [Presence] in Respiratory specimen by CARMEN with probe detection (test code = 79109-9) [facility] [place]
--- NOTE | 2022-03-27 13:11 | RAD REPORT ---
EXAM DESCRIPTION: US - Extremity Venous Uni Ltd - 03/27/2022 1:01 pm CLINICAL HISTORY: Erythema COMPARISON: None. TECHNIQUE: Real-time sonographic evaluation of the right lower extremity deep venous systems was per formed. FINDINGS: Normal compressibility, flow augmentation, phasic flow and spontaneous flow are identified in the right lower extremity common femoral, superficial femoral, popliteal and posterior tibial vei ns. No intraluminal filling defects seen. The small reactive type inguinal lymph nodes are present. Soft tissue edema is seen in the proximal r ight leg but no abscess or drainable fluid collection identifiable. IMPRESSION: No DVT in the right lower extremity. Soft tissue edema changes of thigh without abscess or drainable fluid collection.
[2022-03-27 13:36] LABS: Absolute Lymphocytes (CBC) 0.1 K/uL (0.7-4.9); Hematocrit 38.8 % (39.6-49.0); MCV 96.6 fL (80-100); MPV 8.7 fL (7.6-11.3); RBC Red Blood Cell Count 4.01 M/uL (4.33-5.43)
[2022-03-27 13:52] LABS: Albumin 2.5 g/dL (3.4-5.0); Bilirubin Total 1.5 mg/dL (0.2-1.0); Potassium 3.8 mmol/L (3.5-5.1); Protein, Total 6.2 g/dL (6.4-8.2)
--- NOTE | 2022-03-27 13:54 | ER ---
Nurse's Notes [facility] Name: Lima Jenkins Age: 76 yrs Sex: Male : 1945 Arrival Date: 03/27/2022 Time: 11:58 Bed 5 Private MD: Diagnosis: Cellulitis to right mid medial thigh Presentation: 03/27 12:00 Chief complaint: Patient states: R thigh redness and pain for 3 days. + malaise and ll1 N/V/D. No known fever. EMS states: Dr. Sifuentes called 911 for r/o sepsis. R thigh cellulitis for 3 days with N/V/D. No known fever. Initial BP 74/58, 18 G R AC started 600 ml NS bolus given. Repeat BP 100/61. Coronavirus screen: Vaccine status: Patient reports receiving the 2nd dose of the covid vaccine. Client denies travel out of the [place] in the last 14 days. cough unrelated to allergies, diarrhea, fatigue, nausea, vomiting. Client presents with at least one sign or symptom that may indicate coronavirus-19. Standard/surgical mask placed on the client. Ebola Screen: Patient denies travel to an Ebola-affected area in the 21 days before illness onset. 12:00 Method Of Arrival: EMS ll1 12:00 Initial Sepsis Screen: Does the patient meet any 2 criteria? Systolic BP < 90 mmHg. No. ll1 Patient's initial sepsis screen is negative. Does the patient have a suspected source of infection? Yes: Skin breakdown/wound. Risk Assessment: Do you want to hurt yourself or someone else? Patient reports no desire to harm self or others. Onset of symptoms was March 25, 2022. 12:00 Acuity: MALLORY 2 ll1 Triage Assessment: 12:07 General: Appears in no apparent distress. Behavior is calm, cooperative, appropriate ll1 for age. Pain: Complains of pain in right leg Pain currently is 3 out of 10 on a pain scale. Quality of pain is described as aching. Neuro: Reports weakness. Cardiovascular: Reports fatigue, nausea. Respiratory: Reports cough that is dry. GI: Reports bloating, cramping, diarrhea, nausea, vomiting. Derm: Reports redness to R thigh area. Musculoskeletal: Circulation, motion, and sensation intact. Capillary refill < 3 seconds. Historical: - Allergies: 12:06 No Known Allergies; ll1 - PMHx: 12:06 Hypertensive disorder; Hypercholesterolemia; ll1 - PSHx: 12:06 prostate CA with prostatectomy; B knee replacements; multiple eye SX; ll1 - Immunization history:: Client reports receiving the 2nd dose of the Covid vaccine. - Social history:: Smoking status: Patient denies any tobacco usage or history of. Screenin:00 [facility] ED Fall Risk Assessment (Adult) History of falling in the last 3 months, eh3 including since admission No falls in past 3 months (0 pts) Confusion or Disorientation No (0 pts) Intoxicated or Sedated No (0 pts) Impaired Gait No (0 pts) Mobility Assist Device Used No (0 pt) Altered Elimination Yes (1 pt) Score/Fall Risk Level 0 - 2 = Low Risk. Abuse screen: Denies threats or abuse. Denies injuries from another. Nutritional screening: No deficits noted. Tuberculosis screening: No symptoms or risk factors identified. Assessment: 12:00 General: Appears in no apparent distress. uncomfortable, Behavior is calm, cooperative, eh3 appropriate for age. Pain: Complains of pain in medial aspect of right thigh. Neuro: Level of Consciousness is awake, alert, obeys commands, Oriented to person, place, time, situation. Cardiovascular: Capillary refill < 3 seconds Patient's skin is warm and dry. Respiratory: Airway is patent Respiratory effort is even, unlabored, Respiratory pattern is regular, symmetrical. GI: Abdomen is round non-distended, Reports diarrhea, nausea. : No signs and/or symptoms were reported regarding the genitourinary system. EENT: No signs and/or symptoms were reported regarding the EENT system. Derm: Redness, swelling, and warm to touch on medial aspect of right thigh. Musculoskeletal: No signs and/or symptoms reported regarding the musculoskeletal system. Musculoskeletal: Circulation, motion, and sensation intact. Range of motion: intact in all extremities. 13:00 Reassessment: Patient appears in no apparent distress at this time. Patient and/or eh3 family updated on plan of care and expected duration. Pain level reassessed. Patient is alert, oriented x 3, equal unlabored respirations, skin warm/dry/pink. 14:00 Reassessment: Patient appears in no apparent distress at this time. Patient and/or eh3 family updated on plan of care and expected duration. Pain level reassessed. Patient is alert, oriented x 3, equal unlabored respirations, skin warm/dry/pink. 15:00 Reassessment: Patient appears in no apparent distress at this time. Patient and/or 3 family updated on plan of care and expected duration. Pain level reassessed. Patient is alert, oriented x 3, equal unlabored respirations, skin warm/dry/pink. 16:00 Reassessment: Patient appears in no apparent distress at this time. Patient and/or 3 family updated on plan of care and expected duration. Pain level reassessed. Patient is alert, oriented x 3, equal unlabored respirations, skin warm/dry/pink. 16:42 Reassessment: Attempted to call report to 4th floor, no nurse assigned to pt, charge 3 nurse states she will assign a nurse to this pt and call back. 17:00 Reassessment: Patient appears in no apparent distress at this time. Patient and/or 3 family updated on plan of care and expected duration. Pain level reassessed. Patient is alert, oriented x 3, equal unlabored respirations, skin warm/dry/pink. 17:15 Reassessment: Attempted to call report to 4th floor, nurse busy, will call back. [facility] 17:40 Reassessment: Attempted to call report to 4th floor, nurse busy, will call back. [facility] 18:00 Reassessment: Patient appears in no apparent distress at this time. Patient and/or 3 family updated on plan of care and expected duration. Pain level reassessed. Patient is alert, oriented x 3, equal unlabored respirations, skin warm/dry/pink. Vital Signs: 12:00 BP 86 / 59; Pulse 89; Resp 18; Temp 98.5(O); Pulse Ox 99% on R/A; Weight 94.8 kg; ll1 Height 5 ft. 8 in. (172.72 cm); Pain 3/10; 12:00 BP 87 / 63; Pulse 90; Resp 20; Temp 98.8(O); Pulse Ox 95% on R/A; Pain 3/10; eh3 12:30 BP 89 / 63; Pulse 88; Resp 22; Pulse Ox 95% on R/A; eh3 13:00 BP 88 / 65; Pulse 90; Resp 17; Pulse Ox 97% on R/A; eh3 13:30 BP 101 / 72; Pulse 86; Resp 19; Pulse Ox 97% on R/A; eh3 14:00 BP 95 / 60; Pulse 86; Resp 19; Pulse Ox 97% on R/A; eh3 14:30 BP 103 / 61; Pulse 85; Resp 18; Pulse Ox 98% on R/A; eh3 15:00 BP 88 / 62; Pulse 86; Resp 20; Pulse Ox 95% on R/A; eh3 15:30 BP 91 / 60; Pulse 89; Resp 19; Pulse Ox 95% on R/A; eh3 16:00 BP 108 / 65; Pulse 89; Resp 20; Pulse Ox 95% on R/A; eh3 17:00 BP 109 / 60; Pulse 90; Resp 20; Pulse Ox 98% on R/A; eh3 18:00 BP 114 / 63; Pulse 99; Resp 20; Pulse Ox 98% on R/A; eh3 12:00 Body Mass Index 31.78 (94.80 kg, 172.72 cm) ll1 Vitals: 12:00 Cardiac Rhythm Assessment Sinus rhythm. eh3 ED Course: 11:58 Patient arrived in ED. ll1 11:58 Arm band placed on Patient placed in an exam room, on a stretcher. ll1 11:59 Tim Cardenas NP is PHCP. pm1 11:59 Sammy Riddle MD is Attending Physician. pm1 12:00 Patient has correct armband on for positive identification. Placed in gown. Bed in low eh3 position. Call light in reach. Side rails up X2. Client placed on continuous cardiac and pulse oximetry monitoring. NIBP monitoring applied. Door closed. Noise minimized. Lights dimmed. Warm blanket given. Pillow given. 12:06 Triage completed. ll1 12:09 Maintain EMS IV. Dressing intact. Good blood return noted. Site clean \T\ dry. Gauge \T\ ll 1 site: 18 G R AC. 12:30 Inserted saline lock: 20 gauge in left antecubital area, using aseptic technique. Blood eh3 collected. 12:33 Solange Lorenzo, ELLYN is Primary Nurse. eh3 13:02 US Extremity Venous Unilateral Ltd In Process Unspecified. EDMS 13:51 Toñito Sifuentes MD is Hospitalizing Provider. kdr 18:10 No provider procedures requiring assistance completed. 3 18:11 Patient admitted, IV remains in place. eh3 Administered Medications: 14:00 Drug: NS 0.9% (30 ml/kg) 30 ml/kg Route: IV; Rate: bolus; Site: left antecubital; eh3 17:00 Follow up: IV Status: Completed infusion; IV Intake: 2844ml 3 14:54 Drug: Ancef (cefazolin) 1 grams Route: IVPB; Site: right antecubital; eh3 15:30 Follow up: Response: No adverse reaction; IV Status: Completed infusion; IV Intake: eh3 100ml 15:00 Drug: vancoMYCIN 1 grams Route: IVPB; Infused Over: 2 hrs; Site: left antecubital; eh3 17:00 Follow up: Response: No adverse reaction; IV Status: Completed infusion; IV Intake: eh3 250ml Medication: 18:10 VIS not applicable for this client. eh3 Intake: 15:30 IV: 100ml; Total: 100ml. eh3 17:00 IV: 250ml; Total: 350ml. eh3 17:00 IV: 2844ml; Total: 3194ml. 3 Outcome: 13:53 Decision to Hospitalize by Provider. kdr 18:22 Admitted to Tele accompanied by tech, via wheelchair, room 411, Report called to [facility] 18:22 Condition: stable 18:22 Instructed on the need for admit. 18:23 Patient left the ED. 3 Signatures: Dispatcher [employer] EDSammy Li MD MD kdr Tim Cardenas, JOSE INFANT AND TODDLER TEACHER pm1 Jailene Sidhu RN RN 1 Solange Lorenzo RN RN 3 Corrections: (The following items were deleted from the chart) 12:06 12:00 BP 86 / 59; ll1 ll1
--- NOTE | 2022-03-27 13:54 | EDPHYS ---
Physician Documentation [facility] Name: Liam Jenkins Age: 76 yrs Sex: Male : 1945 Arrival Date: 03/27/2022 Time: 11:58 Bed 5 Private MD: ED Physician Sammy Riddle HPI: 03/27 14:54 This 76 yrs old Male presents to ER via EMS with complaints of General Weakness, Blood kdr Pressure Problem. 14:54 Patient was sent to the ED for possible sepsis and/or cellulitis of the right medial kdr thigh. Patient's had pain in the right medial thigh somewhat posteriorly for 2 days. Patient denies fever. Patient had a some nausea and vomiting but that has resolved. Patient currently has no complaints other than the pain and redness to his thigh area mentioned above. Patient does not acutely ill and nontoxic and not requiring emergent intervention on initial presentation. Onset: The symptoms/episode began/occurred gradually, 2 day(s) ago. Severity of symptoms: At their worst the symptoms were mild moderate just prior to arrival, in the emergency department the symptoms are unchanged. The patient has not experienced similar symptoms in the past. The patient has been recently seen by a physician: the patient's primary care provider, Dr. Sifeuntes. Historical: - Allergies: 12:06 No Known Allergies; ll1 - PMHx: 12:06 Hypertensive disorder; Hypercholesterolemia; ll1 - PSHx: 12:06 prostate CA with prostatectomy; B knee replacements; multiple eye SX; ll1 - Immunization history:: Client reports receiving the 2nd dose of the Covid vaccine. - Social history:: Smoking status: Patient denies any tobacco usage or history of. ROS: 14:54 Constitutional: Negative for fever, chills, and weight loss, Eyes: Negative for injury, kdr pain, redness, and discharge, ENT: Negative for injury, pain, and discharge, Neck: Negative for injury, pain, and swelling, Cardiovascular: Negative for chest pain, palpitations, and edema, Respiratory: Negative for shortness of breath, cough, wheezing, and pleuritic chest pain, Abdomen/GI: Negative for abdominal pain, nausea, vomiting, diarrhea, and constipation, Back: Negative for injury and pain, : Negative for injury, bleeding, discharge, and swelling, MS/Extremity: Negative for injury and deformity, Neuro: Negative for headache, weakness, numbness, tingling, and seizure activity. Psych: Negative for depression, anxiety, suicide ideation, homicidal ideation, and hallucinations, Allergy/Immunology: Negative for hives, rash, and allergies, Endocrine: Negative for neck swelling, polydipsia, polyuria, polyphagia, and marked weight changes, Hematologic/Lymphatic: Negative for swollen nodes, abnormal bleeding, and unusual bruising. 14:54 Skin: Positive for cellulitis, erythema, of the right hamstring and medial aspect of right thigh. Exam: 14:54 Constitutional: This is a well developed, well nourished patient who is awake, alert, kdr and in no acute distress. Head/Face: Normocephalic, atraumatic. Eyes: Pupils equal round and reactive to light, extra-ocular motions intact. Lids and lashes normal. Conjunctiva and sclera are non-icteric and not injected. Cornea within normal limits. Periorbital areas with no swelling, redness, or edema. Neck: Trachea midline, no thyromegaly or masses palpated, and no cervical lymphadenopathy. Supple, full range of motion without nuchal rigidity, or vertebral point tenderness. No Meningismus. Chest/axilla: Normal chest wall appearance and motion. Nontender with no deformity. No lesions are appreciated. Cardiovascular: Regular rate and rhythm with a normal S1 and S2. No gallops, murmurs, or rubs. Normal PMI, no JVD. No pulse deficits. Respiratory: Lungs have equal breath sounds bilaterally, clear to auscultation and percussion. No rales, rhonchi or wheezes noted. No increased work of breathing, no retractions or nasal flaring. Abdomen/GI: Soft, non-tender, with normal bowel sounds. No distension or tympany. No guarding or rebound. No evidence of tenderness throughout. Back: No spinal tenderness. No costovertebral tenderness. Full range of motion. MS/ Extremity: Pulses equal, no cyanosis. Neurovascular intact. Full, normal range of motion. Neuro: Awake and alert, GCS 15, oriented to person, place, time, and situation. Cranial nerves II-XII grossly intact. Motor strength 5/5 in all extremities. Sensory grossly intact. Cerebellar exam normal. Normal gait. Psych: Awake, alert, with orientation to person, place and time. Behavior, mood, and affect are within normal limits. 14:54 Skin: cellulitis, that is mild, confluent, well demarcated, on the right hamstring and medial aspect of right thigh. 18:38 ECG was reviewed by the Attending Physician. kdr Vital Signs: 12:00 BP 86 / 59; Pulse 89; Resp 18; Temp 98.5(O); Pulse Ox 99% on R/A; Weight 94.8 kg; ll1 Height 5 ft. 8 in. (172.72 cm); Pain 3/10; 12:00 BP 87 / 63; Pulse 90; Resp 20; Temp 98.8(O); Pulse Ox 95% on R/A; Pain 3/10; eh3 12:30 BP 89 / 63; Pulse 88; Resp 22; Pulse Ox 95% on R/A; eh3 13:00 BP 88 / 65; Pulse 90; Resp 17; Pulse Ox 97% on R/A; eh3 13:30 BP 101 / 72; Pulse 86; Resp 19; Pulse Ox 97% on R/A; eh3 14:00 BP 95 / 60; Pulse 86; Resp 19; Pulse Ox 97% on R/A; eh3 14:30 BP 103 / 61; Pulse 85; Resp 18; Pulse Ox 98% on R/A; eh3 15:00 BP 88 / 62; Pulse 86; Resp 20; Pulse Ox 95% on R/A; eh3 15:30 BP 91 / 60; Pulse 89; Resp 19; Pulse Ox 95% on R/A; eh3 16:00 BP 108 / 65; Pulse 89; Resp 20; Pulse Ox 95% on R/A; eh3 17:00 BP 109 / 60; Pulse 90; Resp 20; Pulse Ox 98% on R/A; eh3 18:00 BP 114 / 63; Pulse 99; Resp 20; Pulse Ox 98% on R/A; eh3 12:00 Body Mass Index 31.78 (94.80 kg, 172.72 cm) ll1 MDM: 12:00 Patient medically screened. pm1 14:54 Data reviewed: vital signs, nurses notes, lab test result(s), radiologic studies. kdr Consideration of Admission/Observation Patient was admitted/placed on observation. Escalation of care including admission/observation considered. Management of patient was discussed with the following: Primary Care Provider: Phan. I considered the following discharge prescriptions or medication management in the emergency department Medications were administered in the Emergency Department. See APR. 03/27 12:22 Order name: Blood Culture Adult (2) kdr 03/27 12:22 Order name: CBC with Diff; Complete Time: 17:20 kdr 03/27 12:22 Order name: CMP; Complete Time: 17:20 kdr 03/27 12:22 Order name: Lactate w/ 2H reflex if indic.; Complete Time: 17:20 kdr 03/27 12:22 Order name: Protime (+inr); Complete Time: 17:20 kdr 03/27 12:22 Order name: Ptt, Activated; Complete Time: 17:20 kdr 03/27 14:08 Order name: Glucose, Ancillary Testing; Complete Time: 17:20 EDMS 03/27 14:16 Order name: SARS RAPID; Complete Time: 17:20 ss 03/27 14:29 Order name: Basic Metabolic Panel EDMS 03/27 14:29 Order name: Basic Metabolic Panel EDMS 03/27 14:29 Order name: CBC with Automated Diff EDMS 03/27 14:29 Order name: CBC with Automated Diff EDMS 03/27 15:17 Order name: Manual Differential; Complete Time: 17:20 EDMS 03/27 17:20 Order name: Lactate Sepsis 2 HR Follow-up; Complete Time: 17:20 EDMS 03/27 12:22 Order name: EKG; Complete Time: 12:23 kdr 03/27 12:22 Order name: Accucheck; Complete Time: 13:57 kdr 03/27 12:22 Order name: Cardiac monitoring; Complete Time: 12:33 kdr 03/27 12:22 Order name: EKG - Nurse/Tech; Complete Time: 13:35 kdr 03/27 12:22 Order name: IV Saline Lock - Large Bore; Complete Time: 13:35 kdr 03/27 12:22 Order name: Labs collected and sent; Complete Time: 13:35 kdr 03/27 12:22 Order name: O2 Per Protocol; Complete Time: 12:33 kdr 03/27 12:22 Order name: O2 Sat Monitoring; Complete Time: 12:33 kdr 03/27 12:22 Order name: Vital Signs; Complete Time: 12:35 kdr 03/27 12:22 Order name: US Extremity Venous Unilateral Ltd; Complete Time: 13:49 kdr 03/27 13:56 Order name: Misc. Order: draw repeat Lactate at 1550; Complete Time: 16:41 ss 03/27 14:29 Order name: Regular EDMS EC:38 Rate is 85 beats/min. Rhythm is regular, Sinus Rhythm with No ectopy, Low energy. QRS kdr Lawrence is Normal. IN interval is normal. QRS interval is normal. QT interval is normal. Clinical impression: NSR w/ Non-specific ST/T Changes. Administered Medications: 14:00 Drug: NS 0.9% (30 ml/kg) 30 ml/kg Route: IV; Rate: bolus; Site: left antecubital; 3 17:00 Follow up: IV Status: Completed infusion; IV Intake: 2844ml eh3 14:54 Drug: Ancef (cefazolin) 1 grams Route: IVPB; Site: right antecubital; eh3 15:30 Follow up: Response: No adverse reaction; IV Status: Completed infusion; IV Intake: eh3 100ml 15:00 Drug: vancoMYCIN 1 grams Route: IVPB; Infused Over: 2 hrs; Site: left antecubital; eh3 17:00 Follow up: Response: No adverse reaction; IV Status: Completed infusion; IV Intake: eh3 250ml Disposition Summary: 03/27/22 13:53 Hospitalization Ordered Hospitalization Status: Observation kdr Provider: Toñito Sifuentes Location: Telemetry/MedSurg (observation) kdr Condition: Fair kdr Problem: new kdr Symptoms: are unchanged kdr Bed/Room Type: Standard [facility] Room Assignment: 411(03/27/22 16:08) bd Diagnosis - Cellulitis to right mid medial thigh kdr Forms: - Medication Reconciliation Form kdr - SBAR form kdr Signatures: Dispatcher [employer] EDMS Betty Bernardo bd Sammy Riddle MD MD kdr Elliot Rinaldi PA PA jmm Smirch, Shelby, RN RN ss Tim Cardensa, JOSE SCREW MACHINE SET UP OPERATOR TOOL pm1 Jailene Sidhu RN RN ll1 Solange Lorenzo RN RN eh3 Corrections: (The following items were deleted from the chart) 13:18 12:40 LUMBAR SPINE PUNCTURE FLURO/CT ordered. EDMS EDMS 16:08 13:53 kdr bd
[2022-03-27 13:59] LABS: Protime INR 1.11
[2022-03-27] MEDS ORDERED: CEFAZOLIN SODIUM 1 GM/VIAL ONE (14:04)
[2022-03-27] MEDS ORDERED: NA CHLORIDE 0.9% 2,000 ML ONE (14:04)
[2022-03-27] MEDS ORDERED: NA CHLORIDE 0.9% 100 ML ONE (14:06)
[2022-03-27] MEDS ORDERED: ONDANSETRON 4 MG/2 ML VIAL IV PRN (14:11)
[2022-03-27] MEDS ORDERED: VANCOMYCIN 1 GM/VIAL ONE (14:17)
[2022-03-27] MEDS ORDERED: NA CHLORIDE 0.9% 250 ML ONE (14:18)
[2022-03-27 15:06] LABS: SARS-CoV-2 Antigen Rapid Res Negative (Negative)
[2022-03-27 15:17] LABS: Blood Morphology Comment NOT SEEN (NOT SEEN); Platelet Estimate ADEQ
[2022-03-27] MEDS ORDERED: NA CHLORIDE 0.9% 1,000 ML ONE (16:03)
[2022-03-27] MEDS: NA CHLORIDE 0.9% 1,000 ML IV SCH (19:17)
[2022-03-27] MEDS: CEFAZOLIN 1 GM in NA CHLORIDE 0.9% 50 ML IVPB SCH (19:19)
[2022-03-27] MEDS: MORPHINE 2 MG/ML SYR IV PRN (19:20)
[2022-03-27 22:25] VITALS: BMI 31.7
[2022-03-28] MEDS: ACETAMINOPHEN 500 MG TAB PO PRN (00:30)
[2022-03-28] MEDS: NA CHLORIDE 0.9% 1,000 ML IV SCH ×5 (01:00→15:23)
[2022-03-28] MEDS: CEFAZOLIN 1 GM in NA CHLORIDE 0.9% 50 ML IVPB SCH (01:39)
[2022-03-28] MEDS ORDERED: NA CHLORIDE 0.9% 1,000 ML IV ONE (02:24)
[2022-03-28 04:43] LABS: Absolute Lymphocytes (CBC) 0.2 K/uL (0.7-4.9); Hematocrit 34.1 % (39.6-49.0); Lymphocytes % 1.5 % (15.3-44.8); MCV 96.8 fL (80-100); MPV 8.8 fL (7.6-11.3); RBC Red Blood Cell Count 3.52 M/uL (4.33-5.43)
[2022-03-28 04:50] LABS: Potassium 3.2 mmol/L (3.5-5.1)
[2022-03-28] MEDS ORDERED: VANCOMYCIN 1 GM in NA CHLORIDE 0.9% 250 ML IVPB ONE (06:00)
[2022-03-28] MEDS ORDERED: POTASSIUM CL SA 10 MEQ TAB PO ONE ×2 (09:00→18:30)
[2022-03-28] MEDS: MORPHINE 2 MG/ML SYR IV PRN (16:54)
--- NOTE | 2022-03-28 20:14 | P.PN ---
Subjective Date of Service: 03/28/22 Chief Complaint: lot better. had low bp. they called me at night. IV bolus given. Physical Examination - Vital Signs Temperature: 98.9 F Blood Pressure: 103/62 Pulse: 86 Respirations: 18 Pulse Ox (%): 98 - Physical Exam General: Moderate distress HEENT: Atraumatic, PERRLA, EOMI Neck: Supple, JVD not distended Respiratory: Clear to auscultation bilaterally, Normal air movement Cardiovascular: Regular rate/rhythm, Normal S1 S2 Gastrointestinal: Normal bowel sounds, No tenderness Musculoskeletal: No tenderness Integumentary: No rashes, Tenderness/swelling (r ;eg), Erythema, Warmth Neurological: Normal speech, Normal tone, Normal affect Lymphatics: No axilla or inguinal lymphadenopathy - Studies Medications List Reviewed: Yes Assessment And Plan - Current Problems (Diagnosis) (1) Cellulitis, leg Current Visit: Yes Status: Acute Plan: IV vancomycin started IV fluids AKD should improve Qualifiers: Laterality: right Qualified Code(s): L03.115 - Cellulitis of right lower limb
[2022-03-29] MEDS: NA CHLORIDE 0.9% 1,000 ML IV SCH ×3 (00:10→08:43)
[2022-03-29] MEDS: ACETAMINOPHEN 500 MG TAB PO PRN (00:10)
[2022-03-29 04:39] LABS: Potassium 3.4 mmol/L (3.5-5.1)
[2022-03-29] MEDS ORDERED: Meropenem 1,000 MG in NA CHLORIDE 0.9% 100 ML IV SCH (09:00)
[2022-03-29] MEDS ORDERED: POTASSIUM CL SA 10 MEQ TAB PO ONE ×2 (09:00→14:43)
[2022-03-29 10:04] LABS: Thyroid Stimulating Hormone 2.03 uIU/mL (0.358-3.740); Uric Acid 5.3 mg/dL (3.5-7.2)
[2022-03-29 10:57] LABS: Specific Gravity 1.018 (1.005-1.030); Urine Bacteria None Seen /HPF (<20); Urine Bilirubin NEGATIVE (Negative); Urine Blood 1+ (Negative); Urine Clarity Clear (Clear); Urine Color Yellow (Yellow); Urine Glucose NEGATIVE (Negative); Urine Mucus Slight /HPF (None Seen); Urine Protein 1+ (Negative); Urine RBC <5 /HPF (None Seen); Urine Urobilinogen Normal (Normal)
[2022-03-29 11:12] LABS: UR PROTEIN 136.3 mg/dL (<11.9)
[2022-03-29] MEDS ORDERED: Meropenem 1000 MG/VIAL IV ONE ×2 (12:17→12:23)
[2022-03-29] MEDS: Meropenem 1,000 MG in NA CHLORIDE 0.9% 100 ML IV SCH ×2 (12:20→21:20)
[2022-03-29] MEDS ORDERED: NA CHLORIDE 0.9% 1,000 ML IV SCH (12:26)
--- NOTE | 2022-03-29 12:35 | P.CNS ---
Date of Consult: 03/29/22 Reason for Consult: Renal failure Requesting Physician: Toñito Sifuentes V Chief Complaint: lot better. had low bp. they called me at night. IV bolus given. History of Present Illness: 77M w/ PMHx of prostate cancer status post prostatectomy, bilateral knee osteoarthritis status post knee replacement surgery, Htn & HLD who p/w R thigh pain & redness & generalized weakness, admitted for RLE cellulitis, referred to Nephrology for MAGGIE. SCr baseline at 1.1 in April 2018. SCr 3.3 on adm, improved to 1.7 today. He received IV fluids. Urinalysis showed some pyuria. Urine chem non prerenal. Allergies No Known Allergies Allergy (Unverified 04/04/20 10:17) Home Medications: Amlodipine [Norvasc*] 1 tab PO DAILY 03/28/22 Celecoxib 1 cap PO DAILY 03/28/22 Losartan Potassium 1 tab PO DAILY 03/28/22 Testosterone 3 pump DAILY 03/28/22 - Past Medical/Surgical History -: HTN -: HLD -: AMEENA Knee Replacement -: Sinus repair -: Prostate Removal - Social History Alcohol use: Yes CD- Drugs: No Caffeine use: No Place of Residence: Home Review of Systems General: Weakness Eyes: Unremarkable ENT: Unremarkable Respiratory: Unremarkable Cardiovascular: Unremarkable Gastrointestinal: Unremarkable Genitourinary: Unremarkable Musculoskeletal: Leg Pain Integumentary: Other (erythema on right thigh) Neurological: Weakness Lymphatics: Unremarkable Physical Examination Temp Pulse Resp BP Pulse Ox 97.8 F 83 18 101/68 96 03/29/22 12:00 03/29/22 12:00 03/29/22 12:00 03/29/22 12:00 03/29/22 12:00 General: Other (appears as his stated age) HEENT: Atraumatic, Normocephalic Neck: Supple Respiratory: Other (symmetric chest expansion) Cardiovascular: No rubs, No murmurs Gastrointestinal: Soft and benign, No guarding Musculoskeletal: No clubbing, Erythema (right thigh) Integumentary: Erythema (right thigh) Neurological: Normal speech, Normal tone Lymphatics: No axilla or inguinal lymphadenopathy Urinary: Other (no bladder distention) External genitalia: Deferred Rectal: Deferred Conclusions/Impression: # MAGGIE 2/2 prerenal state +/- ATN from prolonged prerenal, vs MAGGIE on CKD Hx of prostate cancer s/p prostatectomy SCr baseline at 1.1 in April 2018 SCr 3.3 on adm, improved to 1.7 today He received IV fluids. Dc IV fluids today. Urinalysis showed some pyuria Urine chem non prerenal liberal by mouth fluid intake Monitor renal panel # RLE cellulitis Abx per primary team # Htn Cont current med regimen # HLD Statin
--- NOTE | 2022-03-29 15:59 | RAD REPORT ---
EXAM DESCRIPTION: US - Renal Ultrasound-Complete - 03/29/2022 3:49 pm CLINICAL HISTORY: Abnormal renal enzymes COMPARISON: None FINDINGS: The right kidney measures 10 cm with a normal echotexture. The left kidney measures 10 cm with a normal echotexture. Hydronephrosis is not seen. No gross abnormality of bladder IMPRESSION: Unremarkable renal ultrasound.
--- NOTE | 2022-03-29 17:42 | RAD REPORT ---
EXAM DESCRIPTION: MRI - Lower Extremity Wo - 03/29/2022 5:06 pm CLINICAL HISTORY: Right leg swelling and pain COMPARISON: None TECHNIQUE: Axial, sagittal and coronal magnetic resonance imaging of the mid to lower right upper le g performed FINDINGS: Extensive edema is present within the subcutaneous tissues of the mid to lower upper leg. An abscess is not seen. The visualized right femur is normal signal. There is no evidence of osteomyelitis. Postsurgical changes right knee Small right knee joint effusion IMPRESSION: Cellulitis No evidence of osteomyelitis
[2022-03-29] MEDS ORDERED: VANCOMYCIN 1.75 GM in NA CHLORIDE 0.9% 500 ML IVPB SCH (18:00)
[2022-03-29] MEDS ORDERED: VANCOMYCIN 1.5 GM in NA CHLORIDE 0.9% 500 ML IVPB SCH (18:00)
[2022-03-29 21:41] VITALS: O2SAT 98
[2022-03-30 02:31] VITALS: BP 96/52; TEMP 98.8
--- NOTE | 2022-03-30 09:30 | P.DS ---
Admission Date: 03/29/22 Discharge Date: 03/30/22 Disposition: TRANSFER TO [facility] Discharge Condition: FAIR Reason for Admission: lot better. had low bp. they called me at night. IV bolus given. - Problems (1) Cellulitis, leg Status: Acute Qualifiers: Laterality: right Qualified Code(s): L03.115 - Cellulitis of right lower limb Hospital Course: DON CAME TO OFFICE WEAK, WITH R THIGH PAIN. I FOUND HIM TO BE IN SEPTIC SHOCK WITH BP OF 76 SYSTOLIC, I CALLED AMBULANCE TO TAKE HIM TO ER. ER DOCTOR PUT HIM ON ANCEF AFTER IV FLUIDS. HE DID NOT IMPROVE SO I CHANGED TO VANCOMYCIN NEXT DAY THERE WAS HIGH CHANCE OF MRSA. RENAL FUNCTION IMPROVED FROM PRERENAL ACUTE RENAL FAILURE OF CREAT OF 3.3 TO 1.6 OVER TWO DAYS. HE GAINED 20 LBS OF WEIGHT BUT AGAIN THAT WAS BECAUSE HE WAS VERY DEHYDRATED WHEN HE CAME TO OFFICE. ALL THESE WAS EXPLAINED TO HIM. NEXT DAY HIS CELLULITIS GOT WORSE AND EXTENDED PROXIMALLY. I CHANGED TO [facility] AND HE FELT BETTER BUT MRI SHOWED POSSIBLE COMPARTMENT SYNDROME AFTER DISCUSSION WITH DR. BLUE. I ASKED HIM TO BE TRANSFERRED TO A HIGHER LEVEL OF CARE DR. NEWTON IS NOT ABLE TO TAKE CARE OF THIS POTENTIAL DIAGNOSIS. HE UNDERSTOOD. INITIALLY I TALKED TO [facility] BUT THERE ARE NO BEDS LATER AT 12 NIGHT AND 1 AM I TALKED TO [facility] WHO ACCEPTED THE PATIENT. Vital Signs/Physical Exam: Temp Pulse Resp BP Pulse Ox 98.8 F 77 20 96/52 L 98 03/30/22 00:00 03/30/22 00:00 03/30/22 00:00 03/30/22 00:00 03/30/22 00:00 Laboratory Data at Discharge: WBC 10.30 K/uL (4.3-10.9) 03/28/22 04:11 Hgb 11.7 g/dL (13.6-17.9) L D 03/28/22 04:11 Hct 34.1 % (39.6-49.0) L 03/28/22 04:11 Plt Count 153 K/uL (152-406) 03/28/22 04:11 PT 12.2 SECONDS (9.5-12.5) 03/27/22 13:23 INR 1.11 03/27/22 13:23 APTT 28.9 SECONDS (24.3-36.9) 03/27/22 13:23 Sodium Cancelled 03/30/22 05:00 Potassium Cancelled 03/30/22 05:00 BUN Cancelled 03/30/22 05:00 Creatinine Cancelled 03/30/22 05:00 Glucose Cancelled 03/30/22 05:00 Uric Acid 5.3 mg/dL (3.5-7.2) 03/29/22 03:52 Total Bilirubin 1.5 mg/dL (0.2-1.0) H 03/27/22 13:23 AST 26 U/L (15-37) 03/27/22 13:23 ALT 29 U/L (16-61) 03/27/22 13:23 Alkaline Phosphatase 79 U/L (45-117) 03/27/22 13:23 Home Medications: Amlodipine [Norvasc*] 1 tab PO DAILY 03/28/22 Celecoxib 1 cap PO DAILY 03/28/22 Losartan Potassium 1 tab PO DAILY 03/28/22 Testosterone 3 pump DAILY 03/28/22 Followup: Toñito Sifuentes MD [Primary Care Provider] -
--- NOTE | 2022-04-09 18:00 | EKG ---
Test Date: 2022-03-27 Test Time: 13:32:20 Auto Inspector: YOLIS MEASUREMENT RESULTS: Intervals: Rate: 85 OR: 176 QRSD: 90 QT: 358 QTc: 426 Harshaw: P: 46 OR: 176 QRS: 25 T: 62 INTERPRETIVE STATEMENTS: Normal sinus rhythm Low voltage QRS Borderline ECG Compared to ECG 05/11/2018 15:41:43 Low QRS voltage now present Electronically Signed On 04-09-22 17:33:36 [employer] by Bryce Maher
== END 2022-03-30 03:48 | disposition short-term general hospital (02) | DRG 871 ==
LOC: ER 11:55 → ERHOLD 14:27 → 4TH 18:21 → OBSVTOIN 03-29 12:25
PROVIDERS: ADMIT Internal Medicine; ATTEND Internal Medicine
DX: A41.9 Sepsis, unspecified organism (principal); R65.21 Severe sepsis with septic shock; L03.115 Cellulitis of right lower limb; N17.9 Acute kidney failure, unspecified; I10 Essential (primary) hypertension; E78.5 Hyperlipidemia, unspecified; Z85.46 Personal history of malignant neoplasm of prostate; Z90.79 Acquired absence of other genital organ(s); Z96.653 Presence of artificial knee joint, bilateral; Z79.899 Other long term (current) drug therapy; Z20.822 Contact with and (suspected) exposure to COVID-19
CPT/HCPCS: 36415; 73718; 76770; 80048; 80053; 80202; 81001; 82435; 82570; 82947; 83605; 83970; 84132; 84156; 84300; 84443; 84550; 85025; 85610; 85730; 87040; 87811; 93005; 93971; 99285; G0378; J0690; J2185; J2270; J3370; J7030; J7040; J7050